=== PATIENT | male | born 1985 | race Caucasian/White ===

== ENCOUNTER 2023-12-18 13:10 | Outpatient (REF) | payer BC, SELFPAY ==
[2023-12-18 16:03] LABS: MANUAL DIFF FLAG NO
[2023-12-18 16:29] LABS: Basophils Absolute Auto 0.1 X10*3/uL (0.0-0.2); Basophils Percent Auto 0.7 % (0-2); Eosinophils Absolute Auto 0.2 X10*3/uL (0.0-0.4); Eosinophils Percent Auto 3.4 % (0-4); Hematocrit 41.2 % (42.0-52.0); Imm Gran Abs Auto 0.04 X10*3/uL (0.00-0.03); Imm Gran Pct Auto 0.6 % (0.0-0.4); Lymphocytes Absolute Auto 2.9 X10*3/uL (1.2-4.9); Lymphocytes Percent Auto 41.1 % (20-40); Mean Corpuscular Volume 88.4 fL (80.0-98.0); Mean Platelet Volume 11.1 fL (9.4-12.4); Monocytes Absolute Auto 0.5 X10*3/uL (0.1-1.2); Monocytes Percent Auto 7.3 % (2-11); Neutrophils Absolute Auto 3.3 x10*3/uL (2.0-8.3); Neutrophils Percent Auto 46.9 % (45-73); Platelet Count 212 X10*3/uL (160-400); Red Blood Count 4.66 X10*6/uL (4.60-5.80); Red Cell Distribution Width 13.4 % (11.0-16.0)
[2023-12-18 16:41] LABS: Alanine Aminotransferase 19 U/L (0-40); Albumin Level 4.4 g/dL (3.5-5.0); Alkaline Phosphatase 69 U/L (39-117); Anion Gap 12 (12-20); Aspartate Amino Transferase 32 U/L (5-37); Bilirubin Total 0.5 mg/dL (0.0-1.0); Blood Urea Nitrogen 18 mg/dL (9-16); C Reactive Protein 0.66 mg/dL (< or = 0.50); Calcium 9.7 mg/dL (8.4-10.2); Carbon Dioxide 31 mmol/L (22-29); Chloride 102 mmol/L (96-108); Estimated Glomerular Filt Rate > 60; Glucose Random 88 mg/dL (60-115); Potassium 3.8 mmol/L (3.3-5.1); Sodium 141 mmol/L (135-145); Total Protein 7.8 g/dL (6.5-8.0)
[2023-12-18 18:05] LABS: Erythrocyte Sedimentation Rate 10 MM/HR (0-15)
== END 2023-12-18 13:11 | disposition home or self-care (01) ==
LOC: HO.HMGCLDS 13:10
PROVIDERS: PCP Internal Medicine; Visit Provider Internal Medicine
DX: R53.83 Other fatigue (principal)
CPT/HCPCS: 36415; 80053; 85025; 85652; 86140

== ENCOUNTER 2024-02-22 14:16 | Outpatient (REF) | payer BC, SELFPAY ==
--- NOTE | ~2024-02-22 | XR_ITS ---
EXAMINATION: XR ANKLE, LEFT CLINICAL INFORMATION: Pain in left ankle left foot COMPARISON: None available. TECHNIQUE: AP, lateral, and mortise views of the left ankle. FINDINGS: No fracture. Alignment is anatomic. No erosions. Joint spaces are maintained. Soft tissues are normal. XR/XR ankle LT min 3V IMPRESSION: Normal left ankle.
== END 2024-02-22 14:17 | disposition home or self-care (01) ==
LOC: HO.HOSX 14:16
DX: M25.572 Pain in left ankle and joints of left foot (principal)
CPT/HCPCS: 73610

== ENCOUNTER 2024-02-22 14:51 | Outpatient (AMB) | payer BC, SELFPAY ==
--- NOTE | 2024-02-22 15:07 | A.OFFVIS_ITS ---
Vital Signs 02/22/24 15:10 Height 5 ft 11 in Weight 295 lb BMI 41.1 Intake Visit Reasons: FRONT WINDOW CASHIER Left ankle pain, no known injury Intake Note: Florian is a 38 yo right hand dominant male who presents today as a new patient for left ankle pain for approximately 6 months ago, worsening since the last 2 weeks. Patient describes pain as not bad . Pain goes and comes . Rep orts taking naproxen for pain with relief, however when he does not take naproxen pain is sharp, 7/8 on a 0-10 pain scale. Patient reports prior surgery to the lateral aspect of the left abernathy back in 2018 at [facility] d/t a hematoma. Allergies No Known Allergies Allergy (Verified 02/22/24 15:11) HPI HPI FRONT WINDOW CASHIER Left ankle pain, no known injury: Details: Patient is a 38-year-old male who presents for evaluation of atraumatic left ankle pain, ongoing for approximately 6 months. Patient reports that he has started running over that timeframe, and has noticed that he began to develop pain on the dorsal aspect of his proximal foot and ankle over that time. The patient reports that this pain is worsened with activity, and improves with rest. The patient also reports that his ankle does occasionally get swollen if he is on his feet for long periods of time, but this resolves with elevation. The patient reports that he was previously prescribed ibuprofen for pain relief, and he states this has helped tremendously, although he begins to experience pain once the ibuprofen wears off. No other acute complaints or concerns at this time. [facility] Social History (Updated 02/22/24 @ 15:15 by JULIANA Pierre) Current occupational status: employed Current occupation: RT handed, construction Review of Systems Const All systems reviewed & are unremarkable except as noted in HPI and below Physical Exam Vital Signs: BMI result Body Mass Index 41.1 Extrem Other: Patient is alert, oriented, and in no acute distress. Neuro: Distal sensation of the left lower extremity intact Vascular: Cap refill brisk Pain: Patient reports very mild tenderness to palpation over the proximal dorsal foot and anterior ankle. No other pain noted ROM: Range of motion of the left ankle full and intact No ligamentous laxity noted Skin: No lacerations or abrasions. General: No ecchymosis, erythema, or evidence of infection. Psych: Appears grossly normal Affect normal Attitude cooperative Results Reviewed Results Reviewed: Left ankle X-rays taken in the office today and independently reviewed by me, Gonzalez Argueta PA-C, demonstrate no acute fracture or bony abnormality. Ankle mortise intact. Assessment & Plan Assessment & Plan (1) Left ankle tendonitis: Code(s): M77.52 - Other enthesopathy of left foot and ankle Category: Medical Plan 1. Left ankle tendinitis Patient is educated about this condition and the typical recovery course Patient is referred to physical therapy for range of motion, strengthening, and stabilization of the left ankle. 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
[2024-02-22 15:10] VITALS: BMI 41.1
== END 2024-02-22 15:36 | disposition home or self-care (01) ==
PROVIDERS: PCP Internal Medicine
DX: M77.52 Other enthesopathy of left foot and ankle (principal)
CPT/HCPCS: 99203

== ENCOUNTER 2024-10-28 13:01 | Outpatient (REF) | payer BC, SELFPAY ==
[2024-10-28 16:07] LABS: MANUAL DIFF FLAG NO
[2024-10-28 16:42] LABS: Alanine Aminotransferase 28 U/L (0-40); Albumin Level 4.5 g/dL (3.5-5.0); Alkaline Phosphatase 64 U/L (39-117); Anion Gap 11 (12-20); Aspartate Amino Transferase 50 U/L (5-37); Bilirubin Total 0.7 mg/dL (0.0-1.0); Blood Urea Nitrogen 18 mg/dL (9-16); Calcium 9.6 mg/dL (8.4-10.2); Carbon Dioxide 29 mmol/L (22-29); Chloride 105 mmol/L (96-108); Cholesterol 213 mg/dL (<200); Estimated Glomerular Filt Rate > 60; Glucose Fasting 95 mg/dL (60-99); HDL Cholesterol 50 mg/dL (>40); LDL Cholesterol Calculated 145 mg/dL (<100); Potassium 3.8 mmol/L (3.3-5.1); Sodium 141 mmol/L (135-145); Total Protein 7.9 g/dL (6.5-8.0); Triglycerides 94 mg/dL (<150)
[2024-10-28 16:53] LABS: Basophils Percent Auto 0.6 % (0-2); Eosinophils Absolute Auto 0.2 X10*3/uL (0.0-0.4); Eosinophils Percent Auto 2.5 % (0-4); Hematocrit 40.5 % (42.0-52.0); Hemoglobin 13.7 g/dl (14.0-18.0); Imm Gran Abs Auto 0.02 X10*3/uL (0.00-0.03); Imm Gran Pct Auto 0.3 % (0.0-0.4); Lymphocytes Absolute Auto 2.8 X10*3/uL (1.2-4.9); Lymphocytes Percent Auto 41.8 % (20-40); Mean Corpuscular HGB Conc 33.8 g/dl (31.0-36.0); Mean Corpuscular Hemoglobin 29.4 pg (27.0-33.0); Mean Corpuscular Volume 86.9 fL (80.0-98.0); Mean Platelet Volume 10.8 fL (9.4-12.4); Monocytes Absolute Auto 0.6 X10*3/uL (0.1-1.2); Monocytes Percent Auto 8.2 % (2-11); Neutrophils Absolute Auto 3.1 x10*3/uL (2.0-8.3); Neutrophils Percent Auto 46.6 % (45-73); Platelet Count 205 X10*3/uL (160-400); Red Blood Count 4.66 X10*6/uL (4.60-5.80); White Blood Count 6.7 X10*3/uL (4.8-10.8)
== END 2024-10-28 13:02 | disposition home or self-care (01) ==
LOC: HO.HMGCLDS 13:01
PROVIDERS: PCP Internal Medicine; Visit Provider Internal Medicine
DX: E78.5 Hyperlipidemia, unspecified (principal); R53.83 Other fatigue
CPT/HCPCS: 36415; 80053; 80061; 85025

== ENCOUNTER 2024-12-28 15:32 | Outpatient (AMB) | payer BC, SELFPAY ==
--- NOTE | 2024-12-28 15:32 | A.OFFPC_ITS ---
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 Accompanied by: Self / Same As Patient Allergies No Known Allergies Allergy (Verified 12/28/24 16:03) Medication List - Last Reconciled 12/28/24 by Jackelyn Stovall PA-C buprenorphine-naloxone 4-1 mg 1 film sublingual DAILY hydrochlorothiazide 25 mg PO DAILY rosuvastatin (Crestor) 10 mg PO DAILY sildenafil 100 mg PO DAILY PRN tirzepatide (weight loss) (Zepbound) 5 mg (0.5 mL) subcut QWEEK Tobacco use date assessed: 12/28/24 Dental Screening Dental Screen Date: 12/28/24 Did you have a dental visit in the last 12 months?: No Did you have a dental problem in the last 6 months where you did not have access to dental care?: No HPI Establish Care HPI Details The patient is a 39-year-old male presenting for the establishment of a primary care relationship following care with Dr. Taveras. He has been diagnosed with essential hypertension, obesity with a BMI of 39, and erectile dysfunction persisting for two years for which sildenafil is being utilized. His obesity is currently managed with Zepbound, with plans to increase the dosage due to the plateau in weight loss. The patient has hypercholesterolemia, with no prior cholesterol-lowering treatment, and is initiating Crestor for management. Previous laboratory testing in October 2024 indicated borderline anemia, normal kidney function, and elevated AST likely secondary to prior heavy alcohol consumption. There is no familial history of colon cancer, but his father has Crohn's disease, which has not manifested in the patient. Social History - Family status: with two daught ers, ages 12 and 4. - Substance use: History of heavy alcoho l consumption. - Nutrition and Weight management: Manag ed on Zepbound for obesity. [facility] Medical History (Updated 12/28/24 @ 16:18 by Jackelyn Stovall PA-C) Elevated AST (SGOT) Anemia Erectile dysfunction Varicose veins of both lower extremities Hyperlipidemia LDL goal <100 Hypercholesteremia Establishing care with new doctor, encounter for Hypertension Obesity (BMI 30-39.9) Family History Father Crohn disease Mother BP (high blood pressure) Social History Housing: House Alcohol intake: current Alcohol intake frequency: a few times a week Patient Tobacco Use Status: Current everyday Tobacco user Tobacco use type: Cigarette Cigarette Packs Per Day: 1 Cigarettes Per Day: 20 service: No Current occupational status: employed Cognitive needs: No Hearing needs: No Vision needs: No Questionnaire PHQ-9 Over the last 2 weeks, how often have you been bothered by any of the following problems? 1. Little interest or pleasure in doing things: not at all 2. Feeling down, depressed, or hopeless: not at all 3. Trouble falling or staying asleep, or sleeping too much: not at all 4. Feeling tired or having little energy: not at all 5. Poor appetite or overeating: not at all 6. Feeling bad about yourself - or that you are a failure or have let yourself or your family down: not at all 7. Trouble concentrating on things, such as reading the newspaper or watching television: not at all 8. Moving or speaking so slowly that other people could have noticed. Or the opposite - being so fidgety or restless that you have been moving around a lot more than usual: not at all 9. Thoughts that you would be better off or of hurting yourself in some way: not at all Total score: 0 Depression Screening Interpretation: Negative Depression Screening Done: Yes 53327 - PHQ-9 Billing: Yes Source: Developed by Drs. Nba Nazario, Sonia Sullivan, Jd Arroyo and colleagues, with an educational tiny from [employer]. Thrive Questionnaire Date Thrive assessed: 12/28/24 I am a: Patient What is your living situation today?: I have a steady place to live Within the past 12 months, did the food you bought not last and you didn't have the money to get more?: Never true Within the past 12 months, did you worry whether your food would run out before you got money to buy more?: Never true Do you have trouble paying for medicines?: No Do you have trouble getting transportation to medical appointments?: No Do you have trouble paying your heating and electricity bill?: No Do you have trouble taking care of your child, family member or friend?: No Do you have trouble with day-to-day activities such as bathing, preparing meals, shopping, managing finances, etc.?: No Are you currently unemployed and looking for a job?: No Are you interested in more education?: No Please select the resources that you would like help with: None THRIVE Score: 0 AUDIT C Alcohol Use Questionnaire (AUDIT-C) 1. How often do you have a drink containing alcohol?: 2-3 times a week 2. How many drinks containing alcohol do you have on a typical day when you are drinking?: 1 or 2 3. How often do you have six or more drinks on one occasion?: Never Total Score: 3 Score Reviewed/Action Taken: No FARHAD-7 AMB Questionnaire FARHAD-7 Date FARHAD - 7 assessed: 12/28/24 Feeling nervous, anxious, or on edge: 0 = Not at all Not being able to stop or control worryin = Not at all Worrying too much about different things: 0 = Not at all Trouble relaxin = Not at all Being so restless that it is hard to sit still: 0 = Not at all Becoming easily annoyed or irritable: 0 = Not at all Feeling afraid as if something awful might happen: 0 = Not at all Total FARHAD-7 score (0-4 normal; 5-9 mild; 10-14 moderate; 15-21 severe): 0 Source: Developed by Drs. Nba Nazario, Sonia Sullivan, Jd Arroyo and colleagues, with an educational tiny from [employer]. FARHAD-7 Assessment Billing FARHAD-7 Assessment Tool: FARHAD-7 Assessment 67202 Review of Systems Const Details: - General: Denies unexplained weight loss or fatigue. - Cardiovascular: Denies chest pain. - Respiratory: Denies shortness of breath. - Gastrointestinal: Denies abdominal pain, black or bloody stool. - Neurological: Denies neurological symptoms. - Musculoskeletal: Denies joint pain or weakness. - Psychiatric: Denies depression or anxiety. - Genitourinary: Reports erectile dysfunction. Physical exam (Primary Care) Vital Signs: Last Vital Signs Temp 97.9 F 12/28/24 15:37 Pulse 80 12/28/24 15:37 Resp 16 12/28/24 15:37 BP 121/73 12/28/24 15:37 Pulse Ox 96 12/28/24 15:37 Oxygen Delivery Method Room Air 12/28/24 15:37 Care Plan Goal for BP management: <140/90 at Goal BMI result Body Mass Index 39.0 BMI Assessment/Plan discussion: High BMI High, discussed plan: lifestyle, weight reduction, dietary, physical activity and alcohol moderation Tobacco/Smoking Status: Tobacco use Status Tobacco use date assessed 12/28/24 12/28/24 15:34 Patient Tobacco Use Status Current everyday Tobacco 12/28/24 15:45 Tobacco use type Cigarette 12/28/24 15:45 PHQ-9: PHQ-9 Score PHQ-9: Total score 0 12/28/24 15:34 Depression Screening Interpretation: Negative Thrive Assessment: Date of Thrive Assessment Date Thrive assessed 12/28/24 12/28/24 15:34 Const Other: Appearance: Alert. Oriented X3. No acute distress. Head: Normal external exam. Normocephalic. Atraumatic. Eyes: Pupils are equal, round, and reactive to light. Extraocular movements intact. Conjunctiva and sclera normal. Eyelids normal. Ears: External auditory canal normal. Tympanic membranes normal. Throat: Pharynx normal. Uvula midline. Moist mucous membranes. Neck: Normal inspection. Neck supple. Full range of motion. No adenopathy. Thyroid Normal. No meningeal signs. No neck mass noted. Cardiovascular: Normal heart rate and rhythm. Heart sound normal. No murmurs noted. Pulses normal throughout. Respiratory: No respiratory distress. Painless inspiration. Breath sounds normal. No wheezes/rales/rhonchi noted. Chest nontender. No accessory muscle usage noted or decreased air movement noted. Abdomen: Soft and nontender. Bowel sounds normal in all 4 quadrants. No distention noted. No organomegaly noted. No visible injury noted. Back: No costovertebral angle tenderness. Full range of motion noted. Skin: Skin warm and dry. Normal skin color. Normal skin turgor. No rashes/lesions/lacerations noted. Extremities: No lower extremity edema. Extremities exhibit normal range of motion. Extremities nontender. Varicose veins noted to bilateral lower extremities. Nonpainful. Neuro: Oriented X 3. No motor deficit. No sensory deficit. Reflexes normal. Results Reviewed Results Reviewed: - Labs: - Hemoglobin and Hematocrit: 13.7 g/dL and 40.5% - Fasting glucose: 95 mg/dL - AST: 50 units/L - Cholesterol: 213 mg/dL - LDL: Elevated by 45 points above desired range - Other diagnostics: Normal kidney function. Coding Level of Care Code New Pt Level 4 (55201) Complex EM visit Add On G2211 Diagnoses Establishing care with new doctor, encounter for Z76.89 Hypertension I10 Obesity (BMI 30-39.9) E66.9 Hypercholesteremia E78.00 Hyperlipidemia LDL goal <100 E78.5 Erectile dysfunction N52.9 Varicose veins of both lower extremities I83.93 Anemia D64.9 Elevated AST (SGOT) R74.01 Additional Codes PHQ-9 - 78230 - PHQ-9 Billing: Yes ([id number]) FARHAD-7 Assessment Billing - FARHAD-7 Assessment Tool: FARHAD-7 Assessment 69635 ([id number]) Assessment & Plan Assessment & Plan (1) Establishing care with new doctor, encounter for: Code(s): Z76.89 - Persons encountering health services in other specified circumstances Category: Medical (2) Hypertension: Code(s): I10 - Essential (primary) hypertension Category: Medical Plan: Continue hydrochlorothiazide with home monitoring. Condition is chronic and stable continue to monitor. (3) Obesity (BMI 30-39.9): Code(s): E66.9 - Obesity, unspecified Category: Medical Plan: Increase Zepbound to 5 mg and encourage lifestyle modifications. Condition is chronic and stable continue to monitor. (4) Hypercholesteremia: Code(s): E78.00 - Pure hypercholesterolemia, unspecified Category: Medical Plan: Start Crestor and encourage dietary modifications. Condition is chronic and stable continue to monitor. (5) Hyperlipidemia LDL goal <100: Code(s): E78.5 - Hyperlipidemia, unspecified Category: Medical Plan: Start Crestor and encourage dietary modifications. Condition is chronic and stable continue to monitor. (6) Erectile dysfunction: Code(s): N52.9 - Male erectile dysfunction, unspecified Category: Medical Plan: Refill Viagra and consider testosterone level check if dysfunction persists. Condition is chronic and stable continue to monitor. (7) Varicose veins of both lower extremities: Code(s): I83.93 - Asymptomatic varicose veins of bilateral lower extremities Category: Medical Plan: Varicose veins to bilateral lower extremities. Will refer to Dr. Abraham vascular surgeon. Condition is chronic and stable continue to monitor. (8) Anemia: Code(s): D64.9 - Anemia, unspecified Category: Medical Plan: Perform iron and ferritin profile, and follow-up once results are available. Condition is chronic and stable continue to monitor. (9) Elevated AST (SGOT): Code(s): R74.01 - Elevation of levels of liver transaminase levels Category: Medical Plan: Monitor liver function periodically, with focus on lifestyle modification if needed. Condition is chronic and stable will continue to monitor. Plan Plan Patient was informed and verbally consented to the use of an ambient scribe for clinic note documentation during this visit. 1. Essential Hypertension Continue hydrochlorothiazide with home monitoring. 2. Obesity With Bmi Of 39 Increase Zepbound to 5 mg and encourage lifestyle modifications. 3. Erectile Dysfunction Refill Viagra and consider testosterone level check if dysfunction persists. 4. Hypercholesterolemia Start Crestor and encourage dietary modifications. 5. Anemia Perform iron and ferritin profile, and follow-up once results are available. 6. Elevated Liver Enzyme Monitor liver function periodically, with focus on lifestyle modification if needed. I discussed with the patient his condition of obesity with a BMI of 39 and a stalled weight loss under Zepbound. We agreed on increasing the dosage to enhance weight loss management, with monitoring through our patient portal. Regarding his erectile dysfunction, a Viagra refill was deemed appropriate with consideration to re-evaluate his testosterone levels if issues persist. I info rmed him about his elevated cholesterol levels and started Crestor, explaining its benefits on cardiovascular health, potential muscle ache as a side effect, and emphasized lifestyle?s role in managing cholesterol. For his anemia, I communicated plans for further iron profile testing. We reviewed his liver enzyme elevation regarding prior alcohol use and agreed on monitoring via routine labs. I also advised follow-up in one year unless lab abnormalities necessitate sooner follow-up, providing anticipatory guidance on contacting the office through the portal for dose adjustments on Zepbound or other concerns. Orders: Orders Ferritin Today D64.9 - Anemia, unspecified Hemoglobin A1c Today Z00.00 - Encounter for general adult medical examination without abnormal findings IRON PROFILE Today D64.9 - Anemia, unspecified TSH reflex Free T4 Today Z00.00 - Encounter for general adult medical examination without abnormal findings PSA,Total (Free>4and<10) Today Z. - Encounter for general adult medical examination without abnormal findings Vitamin B12 and Folate Today Z.00 - Encounter for general adult medical examination without abnormal findings Magnesium Today Z. - Encounter for general adult medical examination without abnormal findings DHEA Sulfate Today Z. - Encounter for general adult medical examination without abnormal findings Testosterone, Free/Total Today Z. - Encounter for general adult medical examination without abnormal findings C Reactive Protein Today Z. - Encounter for general adult medical examination without abnormal findings Vitamin D 25-OH Total Today Z. - Encounter for general adult medical examination without abnormal findings Testosterone, Total Today Z. - Encounter for general adult medical examination without abnormal findings Dihydrotestosterone Today Z. - Encounter for general adult medical examination without abnormal findings Referrals Vascular Surgery Referral I83.93 - Asymptomatic varicose veins of bilateral lower extremities Medications: New sildenafil administer 30 minutes to 4 hours before activity 100 mg PO DAILY PRN 90 tabs 1RF erectile dysfunction tirzepatide (weight loss) (Zepbound) 5 mg (0.5 mL) subcut QWEEK 2 mL 0RF E66.9 - Obesity, unspecified, I10 - Essential (primary) hypertension rosuvastatin (Crestor) 10 mg PO DAILY 90 tabs 1RF E78.00 - Pure hypercholesterolemia, unspecified, E78.5 - Hyperlipidemia, unspecified Patient Instructions: - Take Crestor at bedtime. Alert us if you experience muscle ache. - Increase Zepbound to 5 mg as discussed. - Take the sildenafil as directed. Let us know if problems persist. - Get lab work done when convenient. No fasting needed. - Follow a balanced diet low in saturated fats. - Monitor blood pressure periodically at home. - Schedule follow-up in one year or sooner if needed. - Use patient portal to request medication refills or updates. - Watch for any new symptoms and report any concerning changes.
[2024-12-28 15:37] VITALS: BP 121/73; PULSE 80; RESP 16; TEMP 36.6; O2SAT 96; BMI 39.0
== END 2024-12-28 16:14 | disposition home or self-care (01) ==
LOC: HO.HMCSH 15:32
PROVIDERS: PCP Internal Medicine; Visit Provider Physician Assistant Medical
DX: Z76.89 Persons encountering health services in other specified circumstances (principal); I10 Essential (primary) hypertension; E66.9 Obesity, unspecified; E78.00 Pure hypercholesterolemia, unspecified; E78.5 Hyperlipidemia, unspecified; N52.9 Male erectile dysfunction, unspecified; I83.93 Asymptomatic varicose veins of bilateral lower extremities; D64.9 Anemia, unspecified; R74.01 Elevation of levels of liver transaminase levels

== ENCOUNTER → 2024-12-28 15:32 | Outpatient (BNVA) | payer BC, SELFPAY | PROVIDERS: PCP Internal Medicine; Visit Provider Physician Assistant Medical | DX: I10 Essential (primary) hypertension (principal); E66.9 Obesity, unspecified; N52.9 Male erectile dysfunction, unspecified; E78.00 Pure hypercholesterolemia, unspecified; I83.93 Asymptomatic varicose veins of bilateral lower extremities; D64.9 Anemia, unspecified; R74.01 Elevation of levels of liver transaminase levels; Z76.89 Persons encountering health services in other specified circumstances | CPT/HCPCS: 96127 ==

== ENCOUNTER 2025-01-02 13:31 | Outpatient (REF) | payer BC, SELFPAY ==
[2025-01-02 16:26] LABS: C Reactive Protein 1.18 mg/dL (< or = 0.50); Iron 63 mcg/dL (45-160); Magnesium 1.7 mg/dL (1.6-2.6); Percent Iron Saturation 24 % (15-50); Total Iron Binding Capacity 265 mcg/dL (228-428); Unsaturated Iron Binding 202 ug/dL
[2025-01-02 16:39] LABS: PSA,Total (Free>4and<10) 0.38 ng/mL (0.00-4.00)
[2025-01-02 16:42] LABS: Ferritin 239 ng/mL (20-250); Vitamin D 25-OH Total 84.5 ng/mL (>30)
[2025-01-02 16:53] LABS: Folate 10.6 ng/mL (> or = 4.0); Vitamin B12 423 pg/mL (200-900)
[2025-01-03 05:04] LABS: DHEA Sulfate 118 mcg/dL (93-415)
[2025-01-03 07:05] LABS: Estimated Average Glucose 100 mg/dL; Hemoglobin A1C 112.1659 umol/L; Hemoglobin A1c % 5.1 % (<6.0); Total Hemoglobin (HGBA1C) 3535.3992 umol/L
[2025-01-06 18:38] LABS: Testosterone, Free 26.5 pg/mL (35.0-155.0); Testosterone, Total 294 ng/dL (250-1100)
[2025-01-07 21:49] LABS: Dihydrotestosterone 16 ng/dL (12-65)
== END 2025-01-02 13:32 | disposition home or self-care (01) ==
LOC: HO.HMGCLDS 13:31
PROVIDERS: PCP Physician Assistant Medical; Visit Provider Physician Assistant Medical
DX: Z00.00 Encounter for general adult medical examination without abnormal findings (principal); D64.9 Anemia, unspecified; Z12.5 Encounter for screening for malignant neoplasm of prostate; Z13.1 Encounter for screening for diabetes mellitus
CPT/HCPCS: 36415; 82306; 82607; 82627; 82642; 82728; 82746; 83036; 83540; 83735; 84153; 84402; 84403; 84443; 86140

== ENCOUNTER 2025-01-03 15:13 | Outpatient (AMB) | payer BC, SELFPAY ==
--- NOTE | 2025-01-03 15:30 | MHC.PC.OV ---
Intake Visit Reasons: Sinus congestion, pain/pressure Transcription Typist Required: No Allergies No Known Allergies Allergy (Verified 01/03/25 15:38) Medication List - Last Reconciled 01/03/25 by Jackelyn Stovall PA-C buprenorphine-naloxone 4-1 mg 1 film sublingual DAILY hydrochlorothiazide 25 mg PO DAILY rosuvastatin (Crestor) 10 mg PO DAILY sildenafil 100 mg PO DAILY PRN tirzepatide (weight loss) (Zepbound) 5 mg (0.5 mL) subcut QWEEK Tobacco use date assessed: 01/03/25 Dental Screening Dental Screen Date: 12/28/24 HPI Sinus congestion, pain/pressure HPI Details The patient is a 39 year old male presenting with sinus pressure and chest congestion. He began to feel ill approximately one week ago after visiting the doctor's office, reporting significant sinus pressure and mucus discharge. Despite initial slight improvement, symptoms have escalated, with him describing a severe worsening of his condition, notably with yellow-dark mucus. He denies current fever and denies a medication allergy history. Previous sinus infections were mentioned but he is unsure of past effective treatments. Significant mucus presence in the chest was noted but without chest pain, shortness of breath, or wheezing. There is no known history of asthma or COPD. [facility] Medical History (Updated 01/03/25 @ 15:47 by Jackelyn Stovall PA-C) Acute sinusitis Elevated AST (SGOT) Anemia Erectile dysfunction Varicose veins of both lower extremities Hyperlipidemia LDL goal <100 Hypercholesteremia Establishing care with new doctor, encounter for Hypertension Obesity (BMI 30-39.9) Family History Father Crohn disease Mother BP (high blood pressure) Social History Housing: House Alcohol intake: current Alcohol intake frequency: a few times a week Patient Tobacco Use Status: Current everyday Tobacco user Tobacco use type: Cigarette Cigarette Packs Per Day: 1 Cigarettes Per Day: 20 service: No Current occupational status: employed Cognitive needs: No Hearing needs: No Vision needs: No Questionnaire PHQ-9 Over the last 2 weeks, how often have you been bothered by any of the following problems? 1. Little interest or pleasure in doing things: not at all 2. Feeling down, depressed, or hopeless: not at all 3. Trouble falling or staying asleep, or sleeping too much: not at all 4. Feeling tired or having little energy: not at all 5. Poor appetite or overeating: not at all 6. Feeling bad about yourself - or that you are a failure or have let yourself or your family down: not at all 7. Trouble concentrating on things, such as reading the newspaper or watching television: not at all 8. Moving or speaking so slowly that other people could have noticed. Or the opposite - being so fidgety or restless that you have been moving around a lot more than usual: not at all 9. Thoughts that you would be better off or of hurting yourself in some way: not at all Total score: 0 Depression Screening Interpretation: Negative Depression Screening Done: Yes 60819 - PHQ-9 Billing: Yes Source: Developed by Drs. Nba Nazario, Sonia Sullivan, Jd Arroyo and colleagues, with an educational tiny from [employer]. Thrive Questionnaire Date Thrive assessed: 12/28/24 I am a: Patient What is your living situation today?: I have a steady place to live Within the past 12 months, did the food you bought not last and you didn't have the money to get more?: Never true Within the past 12 months, did you worry whether your food would run out before you got money to buy more?: Never true Do you have trouble paying for medicines?: No Do you have trouble getting transportation to medical appointments?: No Do you have trouble paying your heating and electricity bill?: No Do you have trouble taking care of your child, family member or friend?: No Do you have trouble with day-to-day activities such as bathing, preparing meals, shopping, managing finances, etc.?: No Are you currently unemployed and looking for a job?: No Are you interested in more education?: No Please select the resources that you would like help with: None THRIVE Score: 0 AUDIT C Alcohol Use Questionnaire (AUDIT-C) 1. How often do you have a drink containing alcohol?: 2-3 times a week 2. How many drinks containing alcohol do you have on a typical day when you are drinking?: 1 or 2 3. How often do you have six or more drinks on one occasion?: Never Total Score: 3 Score Reviewed/Action Taken: No FARHAD-7 AMB Questionnaire FARHAD-7 Date FARHAD - 7 assessed: 12/28/24 Feeling nervous, anxious, or on edge: 0 = Not at all Not being able to stop or control worryin = Not at all Worrying too much about different things: 0 = Not at all Trouble relaxin = Not at all Being so restless that it is hard to sit still: 0 = Not at all Becoming easily annoyed or irritable: 0 = Not at all Feeling afraid as if something awful might happen: 0 = Not at all Total FARHAD-7 score (0-4 normal; 5-9 mild; 10-14 moderate; 15-21 severe): 0 Source: Developed by Drs. Nba Nazario, Sonia Sullivan, Jd Arroyo and colleagues, with an educational tiny from [employer]. FARHAD-7 Assessment Billing FARHAD-7 Assessment Tool: FARHAD-7 Assessment 88124 Review of Systems Const Details: - Respiratory: Reports significant pressure in head and sinuses, yellow-dark mucusy discharge; Denies wheezing, shortness of breath, and chest pain. - Constitutional: Denies fever. - Medication History: Denies allergies to medications. - Past Medical History: Reports sinus infections in the past. Physical exam (Primary Care) Tobacco/Smoking Status: Tobacco use Status Tobacco use date assessed 01/03/25 01/03/25 15:36 Patient Tobacco Use Status Current everyday Tobacco 01/03/25 15:36 Tobacco use type Cigarette 01/03/25 15:36 PHQ-9: PHQ-9 Score PHQ-9: Total score 0 01/03/25 15:36 Depression Screening Interpretation: Negative Thrive Assessment: Date of Thrive Assessment Date Thrive assessed 12/28/24 01/03/25 15:36 Telehealth Telehealth Telehealth Platform: Telephone Location of provider rendering services: practice address Location of patient: address on file Patient Identification confirmed using: Name, : Yes Telehealth method: voice only Patient verbally consented to treatment: Yes Patient verbally consented to billing insurance company: Yes Patient informed of any privacy concerns related to visit: Yes Minutes spent on Phone/Video with Pt.: 15 Coding Level of Care Code Tele Est Pt Level 3 (11955) Diagnoses Acute sinusitis J01.90 Additional Codes FARHAD-7 Assessment Billing - FARHAD-7 Assessment Tool: FARHAD-7 Assessment 13053 ([id number]) PHQ-9 - 69522 - PHQ-9 Billing: Yes ([id number]) Assessment & Plan Assessment & Plan (1) Acute sinusitis: Code(s): J01.90 - Acute sinusitis, unspecified Category: Medical Plan: Augmentin was prescribed for treatment, taking into account the patient's symptom presentation consistent with acute sinusitis. To counter potential side effects of the antibiotic such as diarrhea, a probiotic was recommended. Flonase nasal spray was also prescribed to help relieve nasal congestion. Any development of fever or worsening respiratory symptoms should lead the patient to seek medical care immediately. Plan Plan Patient was informed and verbally consented to the use of an ambient scribe for clinic note documentation during this visit. 1. Acute Sinusitis Augmentin was prescribed for treatment, taking into account the patient's symptom presentation consistent with acute sinusitis. To counter potential side effects of the antibiotic such as diarrhea, a probiotic was recommended. Flonase nasal spray was also prescribed to help relieve nasal congestion. Any development of fever or worsening respiratory symptoms should lead the patient to seek medical care immediately. During the consultation, I discussed the probable diagnosis of acute sinusitis with the patient, covering the management of his sinus pressure and mucosal symptoms. I explained the need for antibiotics, specifically Augmentin, and the rationale behind this choice. The importance of taking a probiotic to prevent diarrhea was emphasized. We also discussed utilizing Flonase nasal spray to assist with nasal congestion. The patient was informed of the necessity to monitor symptoms closely, particularly the appearance of fever or respiratory deterioration, and agreed to seek immediate care if such symptoms arise. Further, we agreed on sending prescriptions to the [facility] pharmacy on [facility], as requested. Medications: New amoxicillin-pot clavulanate 875-125 mg 1 tab PO BID 10 days 20 tabs 0RF fluticasone propionate 50 mcg/actuation (Flonase Allergy Relief) administer into each nostril 2 sprays intranasal DAILY 16 grams 0RF Patient Instructions: - Take Augmentin as prescribed, for 7 to 10 days. - Use Flonase nasal spray twice daily. - Consider taking a probiotic to prevent diarrhea. - Watch for fever or shortness of breath; seek immediate care if these occur. - supervisor heavy equipment prescriptions from the [facility] on [address]. - Call or visit emergency services if symptoms worsen.
== END 2025-01-03 15:37 | disposition home or self-care (01) ==
LOC: HO.HMCSH 15:13
PROVIDERS: PCP Physician Assistant Medical; Visit Provider Physician Assistant Medical
DX: J01.90 Acute sinusitis, unspecified (principal)

== ENCOUNTER → 2025-01-03 15:13 | Outpatient (BNVA) | payer BC, SELFPAY | PROVIDERS: PCP Physician Assistant Medical; Visit Provider Physician Assistant Medical | DX: R09.81 Nasal congestion (principal); J01.90 Acute sinusitis, unspecified | CPT/HCPCS: 96127; 98966 ==

== ENCOUNTER 2025-06-05 15:30 | Outpatient (AMB) | payer BC, SELFPAY ==
--- NOTE | 2025-06-05 15:30 | MHC.OFFVIS ---
Intake Visit Reasons: ED, low testosterone Intake Note: New Patient is present for erectile dysfunction , Low Testosterone Urology Rx:Sildenafil Blood Thinners:none Imaging completed: none Labs done 01/02/25: Total Testosterone 294, Fr Testosterone 26.5 Computer Forensics Investigator Required: No Accompanied by: Self / Same As Patient Allergies No Known Allergies Allergy (Verified 06/05/25 16:03) Medication List - Last Reconciled 06/05/25 by SHIRA Carolina-IVETTE amoxicillin-pot clavulanate 875-125 mg 1 tab PO BID 10 days buprenorphine-naloxone 4-1 mg 1 film sublingual DAILY codeine-guaifenesin 10-100 mg/5 mL 5 mL PO Q6H PRN fluticasone propionate 50 mcg/actuation (Flonase Allergy Relief) 2 sprays intranasal DAILY hydrochlorothiazide 25 mg PO DAILY ibuprofen 800 mg PO Q8H rosuvastatin (Crestor) 10 mg PO DAILY sildenafil 100 mg PO DAILY PRN tirzepatide (weight loss) 15 mg (0.5 mL) subcut QWEEK HPI Comments Details: Florian is a 39-year-old male patient of Dr. Stovall. He has a past medical history of anemia, ED, bilateral varicose veins of lower extremity, hyperlipidemia, hypercholesteremia, hypertension, and obesity. He presents to the office today as a new patient for erectile dysfunction, low libido, fatigue, and borderline low testosterone. In discussion with the patient today he reports having recently established PCP care here at [facility] in discussing with his PCP ongoing issues he has been experiencing at which time his testosterone was drawn in recommendations were made for urology referral for further assessment evaluation. Testosterone: 01/18 294 Free testosterone: 01/18 26.5 When asked he does report a previous history of drug use and has since been on Suboxone. He continues to experience issues with erectile dysfunction as well as overall fatigue. He reports he was recently started on tirzepatide 5 months ago and has intentionally lost 80 lb. We did discussed correlation of obesity and Suboxone in relation to borderline low testosterone. We also reviewed potential causes of borderline testosterone as well as further treatment options and risks and benefits of these treatment options. He also reports noting over the last 2-3 years he has been experiencing issues with Peyronie's disease as he has a curvature of the penis to the left side upon erection. He otherwise denies any bothersome urinary issues. He denies urinary urgency, urinary frequency, incontinence, nocturia, hematuria, dysuria, foul smelling urine, changes to urinary stream, flank pain, fever, and or chills. He is happy with his current voiding parameters. We did discussed potential causes and treatment options of Peyronie's disease information was provided. All questions were answered. He otherwise offers no other issues or concerns at this time. [facility] Medical History Low testosterone level in male Acute sinusitis Elevated AST (SGOT) Anemia Erectile dysfunction Varicose veins of both lower extremities Hyperlipidemia LDL goal <100 Hypercholesteremia Establishing care with new doctor, encounter for Hypertension Obesity (BMI 30-39.9) Family History Father Crohn disease Mother BP (high blood pressure) Social History Housing: House Alcohol intake: current Alcohol intake frequency: a few times a week Patient Tobacco Use Status: Current everyday Tobacco user Tobacco use type: Cigarette Cigarette Packs Per Day: 1 Cigarettes Per Day: 20 service: No Current occupational status: employed Cognitive needs: No Hearing needs: No Vision needs: No Review of Systems Const All systems reviewed & are unremarkable except as noted in HPI and below Physical Exam Const General: cooperative, healthy appearing, comfortable, no acute distress, well developed, alert and awake Orientation/consciousness: patient oriented x3 Limitations: no limitations HEENT Head: Yes normal to inspection, Yes normocephalic and Yes atraumatic Ears: hearing grossly normal bilaterally Eyes General: appearance normal, both eyes and all related structures Neck Neck: Yes normal visual inspection and Yes trachea midline Chest Chest palpation & inspection: normal inspection of the chest Resp Effort & Inspection: normal respiratory effort and able to speak in complete sentences Cardio Rate: regular rate GI Inspection: Yes normal to inspection General: Yes no CVA tenderness Back/Spine/Pelvis Back: no CVA tenderness Skin General skin exam: no rashes or lesions noted Neuro General: patient oriented x3 Extrem General: Yes normal to inspection Psych Appearance: grossly normal and well kempt Mental Status: mental status grossly normal Speech and movement: Normal speech and movement present and Clear speech present Affect: normal affect Attitude: cooperative Thought process: Normal thought process present Thought content: Normal thought content present Insight: Fair insight present (Psych) Judgement: Fair judgement present (Psych) Results AMB Urinalysis, Automated UA Leukoctes 0 Esperanza/uL Last Edit by Eugenie Colon, [facility] on 06/05/25 15:37 UA Nitrite Negative Last Edit by Eugenie Colon, [facility] on 06/05/25 15:37 UA Urobilinogen 0.2 mg/dL Last Edit by Eugenie Colon, [facility] on 06/05/25 15:37 UA Protein 0 mg/dL Last Edit by Eugenie Cook, [facility] on 06/05/25 15:37 UA pH 6.5 Last Edit by Eugenie Cook, [facility] on 06/05/25 15:37 UA Blood 0 Raúl/uL Last Edit by Eugenie Cook, [facility] on 06/05/25 15:37 UA Specific [place] 1.010 Last Edit by Eugenie Cook, [facility] on 06/05/25 15:37 UA Ketone Negative Last Edit by [facility], [facility] on 06/05/25 15:37 UA Bilirubin 0 mg/dL Last Edit by Eugenie Cook, [facility] on 06/05/25 15:37 UA Glucose 0 mg/dL Last Edit by [facility], [facility] on 06/05/25 15:37 Results Reviewed Results Reviewed: Laboratory Last Values Urine pH (Auto) 6.5 06/05/25 15:37 Specific [place] (Auto) 1.010 06/05/25 15:37 Urine Protein (Auto) 0 mg/dL 06/05/25 15:37 Glucose (UA)(Auto) 0 mg/dL 06/05/25 15:37 Urine Ketones (Auto) Negative 06/05/25 15:37 Urine Blood (Auto) 0 Raúl/uL 06/05/25 15:37 Urine Nitrite (Auto) Negative 06/05/25 15:37 Urine Bilirubin (Auto) 0 mg/dL 06/05/25 15:37 Urine Urobilinogen (Auto) 0.2 mg/dL 06/05/25 15:37 Leukocyte Esterase (Auto) 0 Esperanza/uL 06/05/25 15:37 Assessment & Plan Assessment & Plan (1) Erectile dysfunction: Code(s): N52.9 - Male erectile dysfunction, unspecified Category: Medical (2) Low testosterone level in male: Code(s): R79.89 - Other specified abnormal findings of blood chemistry Category: Medical (3) Fatigue: Code(s): R53.83 - Other fatigue Category: Medical (4) Peyronie's disease: Code(s): N48.6 - Induration penis plastica Category: Medical Plan In office urinalysis results reviewed with the patient today; as noted above. We did discuss potential causes of hypogonadism, ED, and Peyronie's disease; we did discuss further treatment options and risks and benefits of these treatment options. We did discussed correlation of Suboxone and borderline low testosterone. We also discussed and reviewed further treatment options of Peyronie's disease; information was provided. He currently denies any bothersome urinary issues or concerns. He reports to be happy with current voiding parameters. Will obtain testosterone, PSA, LH, estradiol, prolactin, SHBG, and FSH for further assessment evaluation. All questions were answered. Follow-up in 1-3 months with imaging to be completed prior; or sooner with any issues, concerns, and or questions. Orders: Orders Testosterone, Free/Total Today R79.89 - Other specified abnormal findings of blood chemistry Prostate Specific Antigen Today R79.89 - Other specified abnormal findings of blood chemistry Lutenizing Hormone Today R79.89 - Other specified abnormal findings of blood chemistry Estrad Free (Tot Ultra + Free) Today R79.89 - Other specified abnormal findings of blood chemistry Prolactin Today R79.89 - Other specified abnormal findings of blood chemistry Sex Hormone Binding Globulin Today R79.89 - Other specified abnormal findings of blood chemistry Follicle Stimulating Hormone Today R79.89 - Other specified abnormal findings of blood chemistry Medications: Discontinued amoxicillin-pot clavulanate 875-125 mg Discontinued Reason: Patient Completed Course 1 tab PO BID 10 days 20 tabs 0RF codeine-guaifenesin 10-100 mg/5 mL Discontinued Reason: Patient Completed Course 5 mL PO Q6H PRN 120 mL 0RF cough Patient Instructions: The patient had an opportunity to ask questions regarding the treatment plan. All questions were answered. Physical exam, labs, and imaging were discussed and reviewed in detail. As well as risks, benefits, and discussion of treatment choices. No major barriers to understanding were identified. The patient expressed understanding and agreement with the above treatment plan. The patient was made aware they should contact our office by phone for worsening of their current condition, the appearance of new symptoms, or with any questions or concerns. Compliance is encouraged with any medications and follow up testing that is ordered. It is a privilege to be allowed the opportunity to participate in? your urological care.? Again, if you have any questions or concerns If you have any questions or concerns please do not hesitate to contact me. The office is [phone]. This note is constructed using voice recognition software. While every effort has been made to ensure accuracy shop technician errors may have been included. Yours sincerely, ARNAV Carolina Coding Level of Care Code New Pt Level 3 (44034) Diagnoses Erectile dysfunction N52.9 Low testosterone level in male R79.89 Fatigue R53.83 Peyronie's disease N48.6
== END 2025-06-05 16:04 | disposition home or self-care (01) ==
LOC: HO.HUSH 15:31
PROVIDERS: PCP Physician Assistant Medical; Visit Provider Nurse Practitioner Family
DX: N52.9 Male erectile dysfunction, unspecified (principal); R79.89 Other specified abnormal findings of blood chemistry; R53.83 Other fatigue; N48.6 Induration penis plastica
CPT/HCPCS: 99203